=== PATIENT | male | born 1960 | race Caucasian/White ===

== ENCOUNTER 2020-11-05 08:51 | Emergency (ER) | payer OTHER, SELFPAY ==
[2020-11-05 08:53] VITALS: BP 203/99; PULSE 64; RESP 14; TEMP 37.1; O2SAT 99; BMI 26.9
--- NOTE | 2020-11-05 09:03 | EX.ED.GENINJ ---
HPI History of Present Illness Chief Complaint: Laceration Narrative Narrative: Patient slammed his left fourth digit in a door about 15 minutes ago. He sustained a laceration and has distal pain. He has no other injuries. Tetanus is not up-to-date. [facility] Medical History (Updated 11/05/20 @ 10:[address] Donta Castro MD) Deaf Home Medications cephalexin 500 mg PO Q6 #20 cap 11/05/20 [Rx Last Taken Unknown] Allergy/AdvReac Type Severity Reaction Status Date / Time No Known Allergies Allergy Verified 11/05/20 08:53 Social History Smoking Status: Never smoker ROS ROS ED ROS Narrative Past medical history: He is , otherwise no significant medical problems Medications: Reviewed Social history: Noncontributory Review of systems: Musculoskeletal: Finger injury as above Skin: Finger laceration Neurological: No weakness or paresthesias Hematologic: No easy bleeding or easy bruising EXAM Physical Exam Narrative Exam Narrative: Physical exam General: Patient does not appear in significant distress . Head: Normocephalic, Atraumatic Neck: No C-spine tenderness Cardiovascular: Normal distal pulses Back: Nontender, Normal Inspection. Extremities: Left fourth digit shows a lateral and volar laceration about 3 cm. There is also a 1 cm laceration over the pulp of the digit. There is a contusion over the tuft region and nailbed contusion but no subungual hematoma is seen. The nailbed is intact. Skin: Laceration as above Neurological: Normal strength and sensation Const Vital Signs: 11/05/20 08:53 Temperature 98.7 F Temperature Source Temporal Pulse Rate 64 Respiratory Rate 14 Blood Pressure 203/99 H Blood Pressure Mean 133 Pulse Ox 99 Oxygen Delivery Method Room Air PROC Procedures Lacerations lac: Length: 1.57 in Depth: Skin Shape: Linear Prep: Shadrián-Clens Laceration repair: Irrigated, Lidocaine and Local Suture Information: Ethilon and 4-0 Comment: 2 separate laceration 1 is 3 cm the other 1 is 1 cm. A total of 5 of the 4-0 sutures were placed. Suture repair was of moderate complexity. MDM MDM MDM Narrative Medical decision making narrative: X-ray suggests a fracture, no new fractures seen. Patient was sutured. Tetanus was updated. I will place him on antibiotics and he can follow-up. Radiography Diagnostic Testing: Radiology Impression Finger X-Ray 11/05/20 09:09 IMPRESSION: Soft tissue injury overlying the distal phalanx of the fourth digit. Findings suggestive of a old avulsion fracture at the base of the middle phalanx of the fifth Electronically Signed: Greg Benitez MD at 9:42 EDT , Service support , Finger x-ray read by myself and radiologist shows an avulsion fracture of the base of the middle phalanx. Tuft seems to be intact Discharge Plan Triage Chief Complaint: Laceration Other Complaint: Suture Remv ED Provider: Donta Castro Dx/Rx/DC Orders Clinical Impression: Crush injury to finger, Finger laceration Instructions: ED Crush Injury, Hand, ED Laceration, Hand: All Closures Prescriptions: New cephalexin 500 mg capsule 500 mg PO Q6 Qty: 20 RF: 0 Primary Care Provider: Rajesh Daniel Referrals: [facility] [GROUP OF PHYSICIANS] - 2 Days Luis Jones MD [STAFF PHYSICIAN] - 2 Days for wound check (sutures to be removed in 10 days) Rajesh Daniel MD [Primary Care Provider] - Disposition Disposition: Home, Self Care
--- NOTE | 2020-11-05 09:09 | RAD_ITS ---
STUDY: X-RAY - LEFT HAND, ATTENTION FOURTH FINGER REASON FOR EXAM: Male, 60 years old. Trauma TECHNIQUE: 3 view(s) of the finger were obtained. COMPARISON: None. FINDINGS: Normal metacarpal head. Normal metacarpophalangeal joint. Normal proximal phalanx. Normal middle phalanx. Normal distal phalanx. Normal proximal interphalangeal joint. Normal distal interphalangeal joint. Soft tissue laceration overlying the distal phalanx of the fourth digit. Old avulsion fracture at the base of the middle phalanx of the fifth digit. RAD/Finger(s) Min 2 Views IMPRESSION: Soft tissue injury overlying the distal phalanx of the fourth digit. Findings suggestive of a old avulsion fracture at the base of the middle phalanx of the fifth Electronically Signed: Greg Benitez MD at 9:42 EDT , Service support ,
[2020-11-05] MEDS: Diphth,Pertuss(Acell),Tet Vac 0.5 ML Vial IM (09:53)
[2020-11-05] MEDS: Lidocaine 1% (20 ml mdv) 20 ML Vial INFILT (09:54)
[2020-11-05] MEDS: Cefazolin 1 GM/5 ML Vial IM (10:12)
[2020-11-05 10:13] VITALS: BP 138/74; PULSE 82; RESP 16; O2SAT 97
== END 2020-11-05 10:21 | disposition home or self-care (01) ==
PROVIDERS: Emergency Provider Emergency Medicine; PCP Family Medicine
DX: S61.211A Laceration without foreign body of left index finger without damage to nail, initial encounter (principal); W23.0XXA Caught, crushed, jammed, or pinched between moving objects, initial encounter
CPT/HCPCS: 12001; 73140; 90471; 90715; 96372; 99283